=== PATIENT | male | born 1960 | race African-American/Black ===

== ENCOUNTER 2023-05-09 09:24 | Emergency (ER) | payer OTHER ==
[~2023-05-09] VITALS: Ht 185.4 cm; Wt 104.0 kg
[2023-05-09 09:33] VITALS: TEMP 98.4; O2SAT 98
[2023-05-09 10:15] VITALS: BP 143/103; PULSE 87; RESP 18
[2023-05-09] MEDS ORDERED: KETOROLAC 30MG/ML VIAL IM ONE (10:15)
[2023-05-09] MEDS ORDERED: LIDOCAINE 5% PATCH TOP SCH (10:15)
[2023-05-09] MEDS ORDERED: LIDO700A15 TP (11:03)
[2023-05-09] MEDS ORDERED: TOPUD MT (11:03)
== END 2023-05-09 11:53 | disposition home or self-care (01) ==
LOC: ER 09:24
DX: S60.222A Contusion of left hand, initial encounter (principal); S80.02XA Contusion of left knee, initial encounter; S16.1XXA Strain of muscle, fascia and tendon at neck level, initial encounter; S80.01XA Contusion of right knee, initial encounter; E78.00 Pure hypercholesterolemia, unspecified; I10 Essential (primary) hypertension; V49.49XA Driver injured in collision with other motor vehicles in traffic accident, initial encounter; Y93.89 Activity, other specified; Y92.89 Other specified places as the place of occurrence of the external cause; Y99.8 Other external cause status
CPT/HCPCS: 99283; 73130; 96372; J1885